=== PATIENT | female | born 1950 | race Caucasian/White ===

== ENCOUNTER 2016-07-12 19:17 | Emergency (ER) | payer MEDICARE, OTHER ==
[~2016-07-12] VITALS: Ht 162.6 cm; Wt 47.0 kg
[2016-07-12 19:20] VITALS: BP 123/51; PULSE 76; RESP 18; TEMP 97.8; O2SAT 98
[2016-07-12] MEDS ORDERED: SODIUM CHLORIDE 0.9% FLUSH 5 ML FLUSH IVF PRN (20:00)
[2016-07-12] MEDS ORDERED: ONDANSETRON HCL 4 MG/2 ML VIAL IVP ONE (20:00)
[2016-07-12] MEDS ORDERED: CELE10TA PO (20:00)
[2016-07-12] MEDS ORDERED: OMEP20TA PO (20:00)
[2016-07-12] MEDS ORDERED: HYDR25TA5 PO (20:00)
[2016-07-12] MEDS ORDERED: LINA290C PO (20:00)
[2016-07-12] MEDS ORDERED: HYDROmorphone HCL PF 1 MG/ML VIAL IV PUSH ONE ×2 (20:00→21:45)
--- NOTE | 2016-07-12 20:03 | PD ---
HPI Chief Complaint: Flank/Kidney Pain Time Seen by Provider: 20:01 Travel History International Travel<30 days: No Contact w/Intl Traveler<30days: No Traveled to known affect area: No History of Present Illness HPI Patient comes in complaining of left flank pain that began this morning. Patient reports pain sharp stabbing like in nature is now radiating into her left lower quadrant. Patient states feels similar to pain from a kidney stones in the past approximately 2 years ago. Patient denies doing anything for this aside from taking some Tylenol. Patient history of Crohn's does not take NSAIDs. Patient states she feels it is not her Crohn's flaring up. Patient reports decreased urinary output today. Patient's associated nausea. Denies any vomiting, chest pain, shortness of breath, diarrhea, or fevers. PFSH Past Medical History Kidney Stones: Yes Medical other: Yes (chrons, rheumatic fever ) Influenza Vaccination: Yes ?: Not Past Surgical History Cholecystectomy: Yes Hysterectomy: Yes Tonsillectomy: Yes Social History Alcohol Use: Yes (occas. ) Tobacco Use: No Substance Use: No Allergies-Medications (Allergen,Severity, Reaction): Coded Allergies: Augmentin (Verified Allergy, Intermediate, STOMACH SPASMS, 07/12/16) Codeine (Verified Allergy, Intermediate, 07/12/16) Reported Meds & Prescriptions Reported Meds & Active Scripts Active Percocet (Oxycodone-Acetaminophen) 5-325 mg Tab 1 Tab PO Q6H PRN Macrobid (Nitrofurantoin Monoh/Nitrofur Macro) 100 Mg Cap 100 Mg PO BID 7 Days Reported Hydrochlorothiazide 25 Mg Tab 25 Mg PO DAILY Celexa (Citalopram Hydrobromide) 10 Mg Tab 10 Mg PO DAILY Omeprazole 20 Mg Tab 20 Mg PO DAILY Linzess (Linaclotide) 290 Mcg Cap 290 Mcg PO DAILY Review of Systems Except as stated in HPI: all other systems reviewed are Neg Physical Exam Narrative GENERAL: Well-developed, well nourished, in no acute distress, and non-ill appearing. SKIN: Warm and dry. HEAD: Atraumatic. Normocephalic. EYES: Pupils equal and round. EOMI. No scleral icterus. No injection or drainage. ENT: No nasal bleeding or discharge. Mucous membranes pink and moist. NECK: Trachea midline. No JVD. Supple. No nuclear rigidity. CARDIOVASCULAR: Regular rate and rhythm. No murmur appreciated. RESPIRATORY: No accessory muscle use. No respiratory distress. GASTROINTESTINAL: Abdomen soft, tenderness left lower quadrant and left CVA, nondistended. Hepatic and splenic margins not palpable. Normal bowel sounds 4. No pulsatile mass. MUSCULOSKELETAL: No obvious deformities. No clubbing. No cyanosis. No edema. Full range of motion. NEUROLOGICAL: Awake and alert. No obvious cranial nerve deficits. Motor grossly within normal limits. Normal speech. PSYCHIATRIC: Appropriate mood and affect; insight and judgment normal. Data Data Last Documented VS Vital Signs Date Time Temp Pulse Resp B/P Pulse Ox O2 Delivery O2 Flow Rate FiO2 07/12/16 21:23 62 20 116/56 98 Room Air 07/12/16 19:20 97.8 Orders Complete Blood Count With Diff (07/12/16 19:56) Basic Metabolic Panel (Bmp) (07/12/16 19:56) Urinalysis - C+S If Indicated (07/12/16 19:56) Iv Access Insert/Monitor (07/12/16 19:56) Ecg Monitoring (07/12/16 19:56) Sodium Chloride 0.9% Flush (Ns Flush) (07/12/16 20:00) Ondansetron Inj (Zofran Inj) (07/12/16 20:00) Ct Abd/Pel W/O Iv Contrast (07/12/16 19:56) Hydromorphone Pf Inj (Dilaudid Pf Inj) (07/12/16 20:00) Hydromorphone Pf Inj (Dilaudid Pf Inj) (07/12/16 21:45) Labs Laboratory Tests Test 07/12/16 07/12/16 20:08 21:08 White Blood Count 6.5 TH/MM3 Red Blood Count 4.22 MIL/MM3 Hemoglobin 12.2 GM/DL Hematocrit 35.9 % Mean Corpuscular Volume 85.1 FL Mean Corpuscular Hemoglobin 28.8 PG Mean Corpuscular Hemoglobin 33.9 % Concent Red Cell Distribution Width 14.2 % Platelet Count 207 TH/MM3 Mean Platelet Volume 8.2 FL Neutrophils (%) (Auto) 46.5 % Lymphocytes (%) (Auto) 42.0 % Monocytes (%) (Auto) 9.4 % Eosinophils (%) (Auto) 1.4 % Basophils (%) (Auto) 0.7 % Neutrophils # (Auto) 3.0 TH/MM3 Lymphocytes # (Auto) 2.7 TH/MM3 Monocytes # (Auto) 0.6 TH/MM3 Eosinophils # (Auto) 0.1 TH/MM3 Basophils # (Auto) 0.0 TH/MM3 CBC Comment DIFF FINAL Differential Comment Sodium Level 137 MEQ/L Potassium Level 3.7 MEQ/L Chloride Level 100 MEQ/L Carbon Dioxide Level 28.5 MEQ/L Anion Gap 9 MEQ/L Blood Urea Nitrogen 27 MG/DL Creatinine 1.48 MG/DL Estimat Glomerular Filtration 35 ML/MIN Rate Random Glucose 122 MG/DL Calcium Level 9.3 MG/DL Urine Color YELLOW Urine Turbidity CLEAR Urine pH 5.5 Urine Specific [place] 1.028 Urine Protein TRACE mg/dL Urine Glucose (UA) NEG mg/dL Urine Ketones NEG mg/dL Urine Occult Blood NEG Urine Nitrite NEG Urine Bilirubin NEG Urine Urobilinogen LESS THAN 2.0 MG/DL Urine Leukocyte Esterase LARGE Urine RBC 3 /hpf Urine WBC 1 /hpf Urine Squamous Epithelial 1 /hpf Cells Urine Hyaline Casts 11 /lpf Urine Mucus FEW /lpf Microscopic Urinalysis Comment CULT NOT INDICATED MDM Medical Decision Making Medical Screen Exam Complete: Yes Emergency Medical Condition: Yes Differential Diagnosis Renal colic, cellulitis, Crohn's flare, UTI, other Narrative Course The patient presented with history, exam and evaluation consistent with kidney stone. CT scan showed evidence of stone without obstruction , hydronephrosis or hydroureter. Lab evaluation revealed no serious abnormality or renal insufficiency. The patients pain was well controlled and the patient is tolerating fluids. There was no clinical evidence to support appendicitis, bowel obstruction, cholecystitis/cholelithiasis, pancreatitis, perforation of gastric ulcer, colitis, diverticulitis, bacterial peritonitis, obstruction, volvulus, hernial incarceration or strangulation at this time. There was no evidence to support vascular pathology such as AAA, mesenteric ischemia. There was also no clinical evidence by history, exam or risk factors to suggest atypical presentation of cardiac disease such as ACS, AMI or atypical angina. Diagnosis, plan of care, management and acute outpatient follow up with Urology was discussed with the patient. Warnings to return immediately, such as worsening pain not controlled by pain medications, vomiting, fever or chills or worsening of condition were discussed. The patient agreed with plan. There is no clinical evidence to suggest atypical appendicitis, or vascular pathology ( AAA, etc.). There is no clinical evidence to suggest atypical cervicitis, PID or TOA. Patient in no obvious distress upon re-evaluation. All pertinent laboratory/ Radiology result(s) discussed with patient/family. Discussed patient with Dr. Alvarado, who saw and evaluated the patient is in agreement with plan of care and disposition. Any questions/concerns in reference to patient diagnosis/ condition discussed and clarified prior to patient's discharge. Reinforced sheer importance of close follow up with patient's primary physician or primary care clinic. Instructed patient to return to ED immediately, if symptoms return/ worsen. Pt showed understanding of above instructions. Further instructions and recommendations were detailed in discharge paperwork. Pt ambulated without difficulty out of ED at discharge. Diagnosis Primary Impression: Renal calculi Additional Impression: Cystitis Referrals: Diego Key DO Patient Instructions: General Instructions, Kidney Stones (ED), Urinary Tract Infection in Women (ED) Additional Instructions: Follow-up with your primary care physician and/or urologist 3-5 days for reevaluation. Take all medication as prescribed. Return to the emergency department if symptoms get worse. Med/Other Pt SpecificInfo: Prescription(s) given Scripts Oxycodone-Acetaminophen (Percocet)5-325 mg Tab1 Tab PO Q6H PRN (PAIN) #15 TAB Ref 0 Prov:Tamiko Alvarado MD 07/12/16 Nitrofurantoin Monohydrate Macrocrystals (Macrobid)100 Mg [id number] Mg PO BID 7 Days Ref 0 Prov:Tamiko Alvarado MD 07/12/16 Disposition: 01 DISCHARGE HOME Condition: Stable Terry Samuels Jul 12, 2016 20:03
[2016-07-12 20:33] LABS: BASOPHIL % 0.7 % (0.0-2.0); EOSINOPHIL # 0.1 TH/MM3 (0-0.4); EOSINOPHIL % 1.4 % (0.0-4.0); HEMATOCRIT 35.9 % (35.0-46.0); HEMO FLAGS DIFF FINAL; LYMPHOCYTE # 2.7 TH/MM3 (1.0-4.8); MEAN CELL VOLUME 85.1 FL (80.0-100.0); MEAN CORPUSCULAR HEMOGLOBIN 28.8 PG (27.0-34.0); MEAN CORPUSCULAR HGB CONC 33.9 % (32.0-36.0); MONO % 9.4 % (0.0-8.0); NEUT % 46.5 % (16.0-70.0); PLATELET COUNT 207 TH/MM3 (150-450); RED BLOOD COUNT 4.22 MIL/MM3 (4.00-5.30); RED CELL DISTRIBUTION WIDTH 14.2 % (11.6-17.2); WHITE BLOOD COUNT 6.5 TH/MM3 (4.0-11.0)
--- NOTE | 2016-07-12 20:46 | RADRPT ---
EXAM DATE/TIME: 07/12/2016 20:06 [facility] COMPARISON: No previous studies available for comparison. INDICATIONS : Left low flank pain today. ORAL CONTRAST: No oral contrast ingested. RADIATION DOSE: 13.28 CTDIvol (mGy) MEDICAL HISTORY : Crohn's disease. Renal calculi. SURGICAL HISTORY : Appendectomy. Cholecystectomy.Tonsillectomy. ENCOUNTER: Initial ACUITY: 1 day PAIN SCALE: 8/10 LOCATION: Left Abdomen TECHNIQUE: Volumetric scanning of the abdomen and pelvis was performed. Using automated exposure control and ad justment of the mA and/or kV according to patient size, radiation dose was kept as low as reasonably achievable to obtain optimal diagnostic quality images. FINDINGS: LOWER LUNGS: The visualized lower lungs are clear. A small pericardial effusion is noted. LIVER: Homogeneous density without lesion. There is no dilation of the biliary tree. No calcified gallston es. SPLEEN: Normal size without lesion. PANCREAS: Within normal limits. KIDNEYS: Multiple sub-3 mm scattered stones are seen of both kidneys. 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 No hydronephrosis or hydroureter. Multiple cysts are seen of both kidneys measuri ng up to 2.5 cm in size. ADRENAL GLANDS: Within normal limits. VASCULAR: There is no aortic aneurysm. BOWEL/MESENTERY: The stomach, small bowel, and colon demonstrate no acute abnormality. There is no free intraperitone al air or fluid. ABDOMINAL WALL: Within normal limits. RETROPERITONEUM: There is no lymphadenopathy. BLADDER: No wall thickening or mass. No bladder stones demonstrated but there is a potential 2.5 mm stone in t he urethra, series 601 image 32. This is probably near the level of the UG diaphragm. REPRODUCTIVE: Within normal limits. INGUINAL: There is no lymphadenopathy or hernia. MUSCULOSKELETAL: No acute bony abnormality demonstrated. CONCLUSION: 1. Multiple tiny stones are seen of both kidneys. No ureteral calculus or evidence of acute obstructi ve uropathy. 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 2. Bilateral benign-appearing renal cysts measuring up to 2.5 cm in size. 3. Possible 2.5 mm stone in the mid urethra. This conceivably may have recently passed down one of th e ureters but I don't clearly see any secondary evidence of such. 4. Small age and etiology indeterminate pericardial effusion. Rubén Grider MD on July 12, 2016 at 20:37 Board Certified Radiologist. This report was verified electronically.
[2016-07-12 21:01] LABS: BICARBONATE 28.5 MEQ/L (21.0-32.0); POTASSIUM 3.7 MEQ/L (3.5-5.1)
[2016-07-12 21:23] VITALS: BP 116/56; PULSE 62; RESP 20; O2SAT 98
[2016-07-12 21:38] LABS: BLOOD, URINE NEG (NEG); COMMENT (UR) CULT NOT INDICATED; CULTURE IF INDICATED CULT NOT INDICATED; GLUCOSE,URINE NEG (NEG); HYALINE CAST, URINE 11 /lpf (RARE); KETONE, URINE NEG (NEG); MUCUS URINE FEW /lpf (OCC); NITRITE,URINE NEG (NEG); PH, URINE 5.5 (5.0-8.5); SQUAMOUS EPITHELIAL CELL URINE 1 /hpf (0-5); URINE COLOR YELLOW (YELLW/STRAW)
--- NOTE | 2016-07-12 21:47 | PD ---
Data Data Last Documented VS Vital Signs Date Time Temp Pulse Resp B/P Pulse Ox O2 Delivery O2 Flow Rate FiO2 07/12/16 21:23 62 20 116/56 98 Room Air 07/12/16 19:20 97.8 Orders Complete Blood Count With Diff (07/12/16 19:56) Basic Metabolic Panel (Bmp) (07/12/16 19:56) Urinalysis - C+S If Indicated (07/12/16 19:56) Iv Access Insert/Monitor (07/12/16 19:56) Ecg Monitoring (07/12/16 19:56) Sodium Chloride 0.9% Flush (Ns Flush) (07/12/16 20:00) Ondansetron Inj (Zofran Inj) (07/12/16 20:00) Ct Abd/Pel W/O Iv Contrast (07/12/16 19:56) Hydromorphone Pf Inj (Dilaudid Pf Inj) (07/12/16 20:00) Hydromorphone Pf Inj (Dilaudid Pf Inj) (07/12/16 21:45) Labs Laboratory Tests Test 07/12/16 07/12/16 20:08 21:08 White Blood Count 6.5 TH/MM3 Red Blood Count 4.22 MIL/MM3 Hemoglobin 12.2 GM/DL Hematocrit 35.9 % Mean Corpuscular Volume 85.1 FL Mean Corpuscular Hemoglobin 28.8 PG Mean Corpuscular Hemoglobin 33.9 % Concent Red Cell Distribution Width 14.2 % Platelet Count 207 TH/MM3 Mean Platelet Volume 8.2 FL Neutrophils (%) (Auto) 46.5 % Lymphocytes (%) (Auto) 42.0 % Monocytes (%) (Auto) 9.4 % Eosinophils (%) (Auto) 1.4 % Basophils (%) (Auto) 0.7 % Neutrophils # (Auto) 3.0 TH/MM3 Lymphocytes # (Auto) 2.7 TH/MM3 Monocytes # (Auto) 0.6 TH/MM3 Eosinophils # (Auto) 0.1 TH/MM3 Basophils # (Auto) 0.0 TH/MM3 CBC Comment DIFF FINAL Differential Comment Sodium Level 137 MEQ/L Potassium Level 3.7 MEQ/L Chloride Level 100 MEQ/L Carbon Dioxide Level 28.5 MEQ/L Anion Gap 9 MEQ/L Blood Urea Nitrogen 27 MG/DL Creatinine 1.48 MG/DL Estimat Glomerular Filtration 35 ML/MIN Rate Random Glucose 122 MG/DL Calcium Level 9.3 MG/DL Urine Color YELLOW Urine Turbidity CLEAR Urine pH 5.5 Urine Specific [place] 1.028 Urine Protein TRACE mg/dL Urine Glucose (UA) NEG mg/dL Urine Ketones NEG mg/dL Urine Occult Blood NEG Urine Nitrite NEG Urine Bilirubin NEG Urine Urobilinogen LESS THAN 2.0 MG/DL Urine Leukocyte Esterase LARGE Urine RBC 3 /hpf Urine WBC 1 /hpf Urine Squamous Epithelial 1 /hpf Cells Urine Hyaline Casts 11 /lpf Urine Mucus FEW /lpf Microscopic Urinalysis Comment CULT NOT INDICATED MDM Medical Record Reviewed: Yes Supervised Visit with MARCELINO: Yes Interpretation(s) Last Impressions Abdomen/Pelvis CT 07/12/161955 Signed Impressions: Service Date/Time: Tuesday, July 12, 2016 20:06 - CONCLUSION: 1. Multiple tiny stones are seen of both kidneys. No ureteral calculus or evidence of acute obstructive uropathy. 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 2. Bilateral benign-appearing renal cysts measuring up to 2.5 cm in size. 3. Possible 2.5 mm stone in the mid urethra. This conceivably may have recently passed down one of the ureters but I don't clearly see any secondary evidence of such. 4. Small age and etiology indeterminate pericardial effusion. Rubén Grider MD Narrative Course I, Dr. Alvarado, have reviewed the advance practice practitioner's documentation and am in agreement, met with the patient face to face, made the diagnosis, and the medical decision making was done by me. The patient was initially seen by Eddie, the physician financial sales assistant. Please see his complete history and physical. *My assessment and Findings: The patient is a 66-year-old female who presents to [facility] emergency Department with a history of left flank pain. She reports that it was sudden onset. She reports that she does have a history of kidney stones in the pain is similar. The patient reports that she is visiting from out of town. She reports that she will be visiting locally until October. She denies having a local primary care physician or urologist. The patient's examination was remarkable for CVA tenderness on the left. Laboratory studies including a CT scan of the abdomen and pelvis were ordered. The patient's CT scan of the abdomen and pelvis showed a 2.5 mm midureteral stone, likely the cause of the patient's discomfort. Otherwise laboratory studies were unremarkable. The patient was given the name of the outpatient urologist on-call for follow-up. The patient was given a prescription for pain medication and instructions regarding pushing fluids. The patient is resting comfortably and feels better, is alert and in no distress. The patients results and examination findings were discussed with the patient. The repeat examination is unremarkable and benign. The history, exam, diagnostic testing, and current condition do not suggest any significant pathology to warrant further testing, continued ED treatment, admission, or surgical evaluation at this point. The vital signs have been stable. The patient does not have uncontrollable pain, intractable vomiting, or other significant symptoms. The patient's condition is stable and appropriate for discharge. The patient will pursue further outpatient evaluation with a primary care physician or other designated or consulting physician as indicated in the discharge instructions. The patient expressed understanding and was agreeable with this plan. Diagnosis Primary Impression: Renal calculi Scripts Oxycodone-Acetaminophen (Percocet)5-325 mg Tab1 Tab PO Q6H PRN (PAIN) #15 TAB Ref 0 Prov:Tamiko Alvarado MD 07/12/16 Nitrofurantoin Monohydrate Macrocrystals (Macrobid)100 Mg Hex181 Mg PO BID 7 Days Ref 0 Prov:Tamiko Alvarado MD 07/12/16 Tamiko Alvarado MD Jul 12, 2016 21:47
[2016-07-12] MEDS ORDERED: MACR100C2 PO (21:54)
[2016-07-12] MEDS ORDERED: PERC5TAB12 PO (21:54)
[2016-07-13] MEDS ORDERED: PROM25TA5 PO (13:34)
[2016-07-13] MEDS ORDERED: TAMS5CAP PO (13:34)
== END 2016-07-12 22:31 | disposition home or self-care (01) ==
LOC: NEPC 19:17
DX: N20.0 Calculus of kidney (principal); N30.90 Cystitis, unspecified without hematuria
CPT/HCPCS: 74176; 80048; 81001; 85025; 96374; 96375; 96376; 99284; J1170; J2405

== ENCOUNTER 2016-07-13 12:12 | Emergency (ER) | payer MEDICARE, OTHER ==
[~2016-07-13] VITALS: Ht 165.1 cm; Wt 50.0 kg
[~2016-07-13 12:12] MED LIST: CELE10TA PO; HYDR25TA5 PO; LINA290C PO; MACR100C2 PO; OMEP20TA PO; PERC5TAB12 PO
[2016-07-13 12:13] VITALS: BP 158/110; PULSE 77; RESP 14; TEMP 97.4; O2SAT 100
--- NOTE | 2016-07-13 13:16 | PD ---
HPI Chief Complaint: Flank/Kidney Pain Time Seen by Provider: 13:16 Travel History International Travel<30 days: No Contact w/Intl Traveler<30days: No Traveled to known affect area: No History of Present Illness HPI 66 year-old female presents to emergency department for evaluation right flank pain. Patient was seen and evaluated yesterday in the emergency department. Has history of renal calculi. States the pain is persistent and she has had kidney stones in the past and is never felt this way. Denies fever or chills. Area has not started her antibiotic yet. Has been nauseous without vomiting. No other symptoms to report. PFSH Past Medical History Medical History: Denies Significant Hx Kidney Stones: Yes Past Surgical History Cholecystectomy: Yes Hysterectomy: Yes Tonsillectomy: Yes Social History Alcohol Use: Yes (occas. ) Tobacco Use: No Substance Use: No Allergies-Medications (Allergen,Severity, Reaction): Coded Allergies: Augmentin (Verified Allergy, Intermediate, STOMACH SPASMS, 07/13/16) Codeine (Verified Allergy, Intermediate, 07/13/16) Reported Meds & Prescriptions Reported Meds & Active Scripts Active Flomax (Tamsulosin HCl) 0.4 Mg Cap 0.4 Mg PO BID 3 Days Phenergan (Promethazine HCl) 25 Mg Tab 25 Mg PO Q6H PRN Percocet (Oxycodone-Acetaminophen) 5-325 mg Tab 1 Tab PO Q6H PRN Macrobid (Nitrofurantoin Monoh/Nitrofur Macro) 100 Mg Cap 100 Mg PO BID 7 Days Reported Hydrochlorothiazide 25 Mg Tab 25 Mg PO DAILY Celexa (Citalopram Hydrobromide) 10 Mg Tab 10 Mg PO DAILY Omeprazole 20 Mg Tab 20 Mg PO DAILY Linzess (Linaclotide) 290 Mcg Cap 290 Mcg PO DAILY Review of Systems Except as stated in HPI: all other systems reviewed are Neg Physical Exam Narrative GENERAL: Nourished female patient, ambulatory no acute distress SKIN: Warm and dry. HEAD: Atraumatic. Normocephalic. EYES: Pupils equal and round. No scleral icterus. No injection or drainage. ENT: No nasal bleeding or discharge. Mucous membranes pink and moist. NECK: Trachea midline. No JVD. CARDIOVASCULAR: Regular rate and rhythm. No murmur appreciated. RESPIRATORY: No accessory muscle use. Clear to auscultation. Breath sounds equal bilaterally. GASTROINTESTINAL: Abdomen soft, non-tender, nondistended. Hepatic and splenic margins not palpable. MUSCULOSKELETAL: No obvious deformities. No clubbing. No cyanosis. No edema. right side CVA tenderness. NEUROLOGICAL: Awake and alert. No obvious cranial nerve deficits. Motor grossly within normal limits. Normal speech. PSYCHIATRIC: Appropriate mood and affect; insight and judgment normal. Data Data Last Documented VS Vital Signs Date Time Temp Pulse Resp B/P Pulse Ox O2 Delivery O2 Flow Rate FiO2 07/13/16 12:13 97.4 77 14 158/110 100 Room Air Orders Ketorolac Inj (Toradol Inj) (07/13/16 13:30) Ceftriaxone Inj (Rocephin Inj) (07/13/16 13:30) Ondansetron Odt (Zofran Odt) (07/13/16 13:30) Lidocaine Pf 1% Inj (Xylocaine-Mpf 1% In (07/13/16 13:30) MDM Medical Decision Making Medical Screen Exam Complete: Yes Emergency Medical Condition: Yes Medical Record Reviewed: Yes Differential Diagnosis Renal calculi versus hydronephrosis versus UTI Narrative Course 66 year-old female presents to the emergency department for evaluation of persistent flank pain. Patient was in yesterday to emergency department diagnosed with multiple bilateral renal calculi. Patient had complete workup yesterday. She is ready pain control. She is also given 1 g of IM Rocephin and she has not started her oral antibiotics yet. She feels comfortable going home. She agrees to follow-up with Dr. Key who she has been referred to. She agrees to return immediately with any acute worsening of symptoms. Diagnosis Primary Impression: Renal calculi Additional Impressions: Cystitis Right flank pain Referrals: Urologist Patient Instructions: General Instructions, Kidney Stones (ED) Additional Instructions: Follow-up with urology Continue pain control as already prescribed Continue medications as prescribed Maintain adequate oral hydration Return immediately to the emergency department with any acute worsening of symptoms Med/Other Pt SpecificInfo: Prescription(s) given Scripts Tamsulosin (Flomax)0.4 Mg Cap0.4 Mg PO BID 3 Days Ref 0 Prov:Emmanuelle Uriarte 07/13/16 Promethazine (Phenergan)25 Mg Tab25 Mg PO Q6H PRN (Nausea/Vomiting) #15 TAB Ref 0 Prov:Emmanuelle Uriarte 07/13/16 Disposition: 01 DISCHARGE HOME Condition: Stable Emmanuelle Uriarte Jul 13, 2016 13:16
[2016-07-13] MEDS ORDERED: KETOROLAC TROMETHAMINE 60 MG/2 ML (IM) VIAL IM ONE (13:30)
[2016-07-13] MEDS ORDERED: ONDANSETRON ODT 4 MG TAB PO ONE (13:30)
[2016-07-13] MEDS ORDERED: LIDOCAINE HCL 1% PF 30 ML VIAL XX ONE (13:30)
[2016-07-13] MEDS ORDERED: TAMS5CAP PO (13:34)
[2016-07-13] MEDS ORDERED: PROM25TA5 PO (13:34)
== END 2016-07-13 14:17 | disposition home or self-care (01) ==
LOC: NETRI 12:12
DX: N20.0 Calculus of kidney (principal); N30.90 Cystitis, unspecified without hematuria; R10.9 Unspecified abdominal pain
CPT/HCPCS: 96372; 99283; J0696; J1885